=== PATIENT | male | born 1935 | race Caucasian/White ===

== ENCOUNTER → 2017-09-14 13:08 | Outpatient (CLI) | payer MEDICARE, SELFPAY | PROVIDERS: PCP Family Medicine; Visit Provider Physician Assistant | DX: I48.91 Unspecified atrial fibrillation (principal); I10 Essential (primary) hypertension | CPT/HCPCS: 93005 ==

== ENCOUNTER → 2017-09-21 08:04 | Outpatient (CLI) | payer MEDICARE, SELFPAY ==
--- NOTE | 2017-09-21 | CA_ITS ---
PROCEDURE: 2-D M-mode and color Doppler study INDICATIONS FOR THE TEST: Chest pain COPD Heart Murmur Tobacco Smokingex Palpitations Fatigue Syncope Edema Hypertension+Diabetes Mellitus Rheumatic Fever SOB TRIPATHI Obesity Hyperlipidemia Family History HD Additional History Afib, AAA PATIENT INFORMATION HEIGHT: 71 WEIGHT: 180 GENDER: Male B/P: 182/80 2-D/M-MODE INTERPRETATION: 2-D MEASUREMENTS OBSERVED VALUES IN CMS Right Ventricular Dimension (RVDd) 3.1 Interventricular Septum (Thickness)(IVsd) 1.3 Left Ventricular Internal Dimensions(LVIDd) 2.9 Left Ventricular Posterior Wall (Thickness)(LVPWd) 1.3 Aortic Root 4.0 Aortic Cusp Separation 2.2 Left Atrial Dimensions (LAD) 4.6 2D 1. Left atrium is moderately enlarged, left ventricle is normal size, there is mild concentric left ventricular hypertrophy, visually estimated ejection fraction of 55% with no obvious regional wall motion abnormality. 2. The right atrium and right ventricle are mildly enlarged with normal contractility. 3. The aortic valve is thickened and calcified. 4. The mitral valve has mitral annular calcification which extends and both anterior and posterior mitral leaflet 5. The tricuspid valve is grossly normal. 6. The pulmonic valve is poorly visualized. 7. No significant pericardial effusion noted. DOPPLER INTERROGATION: Doppler interrogation of the aortic, mitral and tricuspid valve reveals presence of moderate aortic, moderate mitral and mild tricuspid regurgitation, tricuspid and jet velocity insufficient for calculation of the right ventricular systolic pressure. CONCLUSION: 1. Biatrial enlargement, normal left ventricular size, mild concentric left ventricular hypertrophy, visually estimated ejection fraction 55% with no obvious regional wall motion abnormality, diastolic parameters are inconclusive. 2. Thickened and calcified aortic valve without aortic stenosis, there is moderate aortic insufficiency. 3. Moderate mitral and tricuspid regurgitation, tricuspid and jet velocity insufficient for calculation of right ventricular systolic pressure 4. No significant pericardial effusion noted.
--- NOTE | 2017-09-21 08:51 | US_ITS ---
US aorta HISTORY: Screening for aortic aneurysm ITS.REASON: HTN, AFIB FINDINGS: Survey of the abdominal aorta shows normal caliber of the aorta 1.9 x 1.9 cm at the level of the xiphoid, 1.6 x 1.6 cm at the level of the umbilicus. Common iliacs do not appear dilated at 1 cm each. Atheromatous plaque is noted in the aortoiliac vessels. IMPRESSION: No evidence of abdominal aortic aneurysm
== END ==
PROVIDERS: PCP Family Medicine; Visit Provider Physician Assistant
DX: I10 Essential (primary) hypertension; I48.0 Paroxysmal atrial fibrillation
CPT/HCPCS: 76770; 93306

== ENCOUNTER → 2018-02-15 09:24 | Outpatient (CLI) | payer MEDICARE, SELFPAY ==
--- NOTE | 2018-02-15 09:25 | US_ITS ---
US Arterial Ankle Brachial Ind History: Diabetes, hypertension, skin changes ITS.REASON: skin change ORDERING PHYSICIAN: Rhoda Leary DPM PATIENT AGE: 82 years TECHNIQUE: Segmental pressures obtained of both right and left leg. These are compared to brachial blood pressure to yield index at each level sampled including summary SAMANTHA. The data sheets from the procedure are available in PACS FINDINGS Rest study only performed today No prior studies available for comparison. Blood pressures reported are in millimeters mercury. RIGHT LEG SAMANTHA = the vessels are noncompressible. ABIs not able to be calculated. RIGHT LEG TBI=.4 Brachial BP: 176 Thigh BP: 236 Calf BP: >254 Ankle PT: >254 Ankle DP : >254 Digit =72 LEFT LEG SAMANTHA = not able to calculate due to noncompressibility of the vessels LEFT LEG TBI= .4 Brachial BPD: 164 Thigh BP: >254 Calf BP: >254 Ankle PT:>254 Ankle DP: >254 Digit = 63 Pulses and waveforms: Diminished pulses and waveforms IMPRESSION: 1. Unable to calculate ABIs due to the noncompressibility of the vessels consistent with hardening of the arteries 2. Low TBI s of 0.4 on both sides consistent with small vessel disease
== END ==
PROVIDERS: PCP Family Medicine; Visit Provider Podiatrist
DX: R09.89 Other specified symptoms and signs involving the circulatory and respiratory systems (principal)
CPT/HCPCS: 93922